=== PATIENT | female | born 1965 | race Caucasian/White ===

== ENCOUNTER → 2016-05-18 | Outpatient (CLI) | payer BC ==
--- NOTE | 2016-05-18 07:38 | US ---
EXAMINATION TYPE: US kidneys/renal and bladder DATE OF EXAM: 05/18/2016 7:10 AM COMPARISON: NONE CLINICAL HISTORY: 50-year-old female R80.9 Proteinuria. Hematuria TECHNIQUE: Multiple sonographic images of the kidneys were obtained. FINDINGS: Right Kidney: 11.7 x 3.9 x 4.7 cm without hydronephrosis. Left Kidney: 10.6 x 4.8 x 4.6 cm without hydronephrosis. There are a couple 5 mm echogenic foci one w ithin the mid pole and one within the lower pole suspicious for nonobstructive calculi. No gross abnormality of the partially urine distended bladder. Neither ureteral jet is seen during th e course of the exam. IMPRESSION: 1. No hydronephrosis. 2. Suspect a couple 5 mm nonobstructive calculi on the left.
== END | disposition home or self-care (01) ==
LOC: RADUSWWP 06:48
PROVIDERS: ATTEND Internal Medicine Rheumatology
DX: R80.9 Proteinuria, unspecified (principal)
CPT/HCPCS: 76770

== ENCOUNTER → 2020-11-15 | Outpatient (CLI) | payer OTHER ==
--- NOTE | 2020-11-18 09:28 | MM ---
Reason for exam: clinical finding. History: Patient is postmenopausal. Implants in both breasts, 1985. Physical Findings: Nurse did not find any significant physical abnormalities on exam. MG 3D Diag Mammo W/Cad EMA Bilateral CC and MLO view(s) were taken. LM, CC with magnification, and LM with magnification view(s) were taken of the right breast. The breast tissue is heterogeneously dense. This may lower the sensitivity of mammography. Scattered calcifications obscured by ruptured implants. 6 month follow up mammogram right breast. These results were verbally communicated with the patient and result sheet given to the patient on 11/15/20. ASSESSMENT: Incomplete: need additional imaging evaluation, BI-RAD 0 RECOMMENDATION: Ultrasound of the left breast. (at palpable sites)
--- NOTE | 2020-11-18 09:30 | USB ---
Reason for exam: additional evaluation requested from abnormal screening. History: Patient is postmenopausal. Implants in both breasts, 1985. US Breast Limited LT Left limited breast ultrasound including focal area of concern, retroareolar and axilla demonstrates no cystic or solid lesion seen. Left 9-3 o'clock scanned failed implant remnants noted throughout. These results were verbally communicated with the patient and result sheet given to the patient on 11/15/20. ASSESSMENT: Probably benign, BI-RAD 3 RECOMMENDATION: Follow-up diagnostic mammogram of the left breast in 6 months. (with magnification views) Manage patient on a clinical basis.
== END | disposition home or self-care (01) ==
LOC: RADMAMWWP 10:23
PROVIDERS: ATTEND Family Medicine
DX: R92.2 Inconclusive mammogram (principal); R92.1 Mammographic calcification found on diagnostic imaging of breast; Z78.0 Asymptomatic menopausal state
CPT/HCPCS: 77066; 76642; G0279; 77062

== ENCOUNTER → 2021-07-11 | Outpatient (CLI) | payer OTHER ==
[2021-07-11 22:23] LABS: Basophils # (A) 0.02 X 10*3/uL (0.00-0.10); Basophils % (A) 0.4 %; Eosinophils # (A) 0.09 X 10*3/uL (0.04-0.35); Eosinophils % (A) 1.9 %; HGB 12.2 g/dL (12.0-15.0); Immature Grans, Automated 0 %; Lymphocytes # (A) 1.66 X 10*3/uL (0.90-5.00); Lymphocytes % (A) 35.1 %; MCH 32.4 pg (27.0-32.0); MCHC 31.3 g/dL (32.0-37.0); MCV 103.7 fL (80.0-97.0); Mean Platelet Volume 10.3 fL (9.5-12.2); Monocytes # (A) 0.37 X 10*3/uL (0.20-1.00); Monocytes % (A) 7.8 %; NRBC Per 100 WBC 0 /100 WBCS (0.0-0.0); Neutrophils # (A) 2.59 X 10*3/uL (1.80-7.70); Neutrophils % (A) 54.8 %; Platelet Count 290 X 10*3/uL (140-440); RBC 3.76 X 10*6/uL (4.10-5.20); RDW 11.9 % (11.5-14.5); WBC 4.73 X 10*3/uL (4.50-10.00)
[2021-07-11 23:06] LABS: % Iron Saturation 16.25 (12.00-45.00); ALT 16 U/L (8-44); AST 18 U/L (13-35); African American GFR (CKD) 100.3 (60.0-200.0); Albumin 4.3 g/dL (3.8-4.9); Albumin/Globulin Ratio 3.06 (1.60-3.17); Alkaline Phosphatase 54 U/L (41-126); BUN/Creat Ratio 24.71 Ratio (12.00-20.00); Blood Urea Nitrogen 19.1 mg/dL (9.0-27.0); Calcium 8.7 mg/dL (8.7-10.3); Carbon Dioxide 21.2 mmol/L (20.0-27.5); Chloride 109 mmol/L (96-109); Globulin 1.4 g/dL (1.6-3.3); Glucose 89 mg/dL (70-110); Iron 54 ug/dL (50-170); Magnesium 2.1 mg/dL (1.5-2.4); Non-African American GFR(CKD) 86.5 (60.0-200.0); Sodium 141 mmol/L (135-145); Total Bilirubin <0.15 mg/dL (0.30-1.20); Total Iron Binding Capacity 330 ug/dL (228-460); Total Protein 5.7 g/dL (6.2-8.2)
== END | disposition home or self-care (01) ==
LOC: LABWHC1 16:05
PROVIDERS: ATTEND Nurse Practitioner Family
DX: R63.4 Abnormal weight loss (principal); R31.9 Hematuria, unspecified; R11.2 Nausea with vomiting, unspecified
CPT/HCPCS: 36415; 80053; 83036; 83516; 83540; 83550; 83735; 84439; 84443; 84481; 85025

== ENCOUNTER → 2021-07-14 | Outpatient (CLI) | payer OTHER ==
--- NOTE | 2021-07-14 15:50 | XR ---
EXAMINATION TYPE: XR femur LT DATE OF EXAM: 07/14/2021 COMPARISON: NONE HISTORY: 55-year-old female M79.609, unspecified limb pain TECHNIQUE: 2 views FINDINGS: No acute fracture. Hip and knee articulations appear grossly intact. No periostitis or osteolysis. No knee joint effusion. Possible subtle 1.1 cm wide broad-based osteochondroma from the lateral distal femoral metadiaphyseal cortex. IMPRESSION: Possible subtle 1.1 cm wide, broad-based tiny osteochondroma from the lateral distal femoral metadiap hysis. Correlate for any point tenderness here. No acute osseous abnormality otherwise seen.
== END | disposition home or self-care (01) ==
LOC: RADXRMAIN 11:15
PROVIDERS: ATTEND Nurse Practitioner Family
DX: M79.609 Pain in unspecified limb (principal)

== ENCOUNTER → 2021-07-31 | Outpatient (CLI) | payer OTHER ==
--- NOTE | 2021-07-31 18:04 | CT ---
EXAMINATION TYPE: CT abdomen pelvis w con CT DLP: 369.3 mGycm, Automated exposure control for dose reduction was used. DATE OF EXAM: 07/31/2021 4:59 PM COMPARISON: None. CLINICAL INDICATION:Female, 56 years old with history of R10.9 abdominal R63.4; Weight loss and abnor mal US. TECHNIQUE: Standard CT of the abdomen and pelvis following the administration of 100 cc of Isovue 3 00 IV contrast material and oral contrast. Coronal and sagittal reformats were performed. FINDINGS: LOWER CHEST: Unremarkable ABDOMEN LIVER: Left hepatic lobe probable renal cyst measuring 7 mm. GALLBLADDER AND BILE DUCTS: Common bile duct measures within normal limits measuring 7 mm. PANCREAS: The pancreatic duct measures at the upper limits of normal at 4 mm. SPLEEN: Unremarkable. ADRENAL GLANDS: Unremarkable. KIDNEYS AND URETERS: No evidence of hydronephrosis or renal calculus. The ureters are unremarkable. Left renal cyst measuring 13 mm. PELVIS BLADDER: Unremarkable REPRODUCTIVE: Unremarkable. ABDOMEN & PELVIS STOMACH AND BOWEL: Visualized liver stool throughout the colon. No evidence of bowel obstruction. PERITONEUM: No evidence of pneumoperitoneum or free fluid. VASCULATURE: No evidence of aortic aneurysm. MUSCULOSKELETAL: No acute osseous abnormalities. Grade 1 anterolisthesis of L3-4 without pars interar ticularis defects. LYMPH NODES: No gross evidence for lymphadenopathy. SOFT TISSUE/ABDOMINAL WALL: Unremarkable IMPRESSION: 1. No evidence of acute process or finding to correlate with patient's weight loss. Main pancreatic d uct and common bile duct are within normal limits. 2. Left renal cyst. 3. Left hepatic lobe too small to categorize probable renal cysts. 4. Large amount stool throughout the colon. Correlate for constipation. 5. No evidence of left lower pole renal calculus seen on prior ultrasound.
== END | disposition home or self-care (01) ==
LOC: RADCTMAIN 14:59
PROVIDERS: ATTEND Family Medicine
DX: N28.1 Cyst of kidney, acquired (principal); K63.89 Other specified diseases of intestine
CPT/HCPCS: 74177; Q9967

== ENCOUNTER → 2021-08-21 | Outpatient (CLI) | payer OTHER ==
[2021-08-21 16:22] VITALS: BP 104/70; PULSE 72; RESP 16; TEMP 98.6
--- NOTE | 2021-08-21 16:53 | P.GSHP ---
History of Present Illness H&P Date: 08/21/21 Chief Complaint: left breast lump Nela is a 56 year old white female seen in consultatin for Aline Golden regarding two lumps in her left breast. The patient felt these last summer. She had a bilateral mammogram on this was felt to be incomplete and an ultrasound of the left breast was recommended ultrasound of the left breast was performed on the same date and this was felt to be benign BIRADS 3 no cystic or solid lesions were identified. A follow-up mammogram of the left breast in 6 months was recommended. These were not repeated. She had bilateral breast implants in 1988. She states about one year ago the left implant started to decrease in size and so she had the right one aspirated by a plastic surgeon. She was told she would need them removed, this has not happened yet. Now she is having problems with them. The patient states that the implants are painful all the time. They are 10 out of 10. The worse if she is trying to sleep may cause severe discomfort for her additionally they cause her severe anxiety because she is on concern as to why they're so painful. She has also had extreme weight loss of approximately 40 pounds and they do not have an explanation as to the weight loss. Her breasts are asymmetric as the left one has leaked out in the right one was aspirated but they are still asymmetric making it difficult for her to find close to fit well. Caffiene: 1 cup/day nicotine: none chocolate: occasional BCP: none Family History: Paternal grandfather colon cancer uncertain of the type Father: Skin cancer maternal grandmother: uterine cancer Hormonal History: menarche: 13 M1, breast fed: no, age at first : 28 hysterectomy bilat oophrectomy at 48 for fibroids Surgical history: Total abdominal hysterectomy Appendectomy Lysis of adhesion Cervical spine surgery during an anterior approach Hemithyroidectomy Bilateral breast implants Medical history: hypothyroid pain medicine for cervical spine pain Social History: nicotine: none alcohol:none drugs: Marijuana daily - Constitutional Constitutional: Denies chills, Denies fever - EENT Eyes: denies blurred vision, denies pain Ears: bilateral: decreased hearing, tinnitus Ears, nose, mouth and throat: Denies headache, Denies sore throat - Breasts Breasts: bilateral: as per HPI - Cardiovascular Cardiovascular: Denies chest pain, Denies shortness of breath - Respiratory Respiratory: Denies cough, Denies 7 - Gastrointestinal Gastrointestinal: Denies abdominal pain, Denies diarrhea, Denies nausea, Denies vomiting - Genitourinary (Female) Genitourinary: Reports kidney stones, Denies dysuria, Denies hematuria - Menstruation Menstruation: Reports post hysterectomy - Musculoskeletal Musculoskeletal: Reports myalgias - Integumentary Integumentary: Denies pruritus, Denies rash - Neurological Neurological: Denies numbness, Denies weakness - Psychiatric Psychiatric: Denies anxiety, Denies depression - Endocrine Endocrine: Reports weight change, Denies fatigue - Hematologic/Lymphatic Comment: none - Allergic/Immunologic Allergic/Immunologic: Reports seasonal allergies Past Medical History History of Any Multi-Drug Resistant Organisms: None Reported Smoking Status: Former smoker Medications and Allergies Home Medications Medication Instructions Recorded Confirmed Type Cholecalciferol [Vitamin D3 (25 25 mcg PO DAILY 08/21/21 08/21/21 History Mcg = 1000 Iu)] FLUoxetine HCL [PROzac] 40 mg PO DAILY 08/21/21 08/21/21 History Levothyroxine Sodium [Synthroid] 88 mcg PO DAILY 08/21/21 08/21/21 History Topiramate [Topamax] 200 mg PO BID 08/21/21 08/21/21 History Valsartan/Hydrochlorothiazide 1 each PO DAILY 08/21/21 08/21/21 History [Valsartan-Hctz 160-12.5 mg Tab] Zinc 50 mg PO DAILY 08/21/21 08/21/21 History oxyCODONE-APAP 10-325MG [Percocet 1 tab PO Q8HR PRN 08/21/21 08/21/21 History 10-325 mg] Allergies Allergy/AdvReac Type Severity Reaction Status Date / Time lisinopril Allergy Rash/Hives Verified 08/21/21 16:22 Surgical - Exam Vital Signs Temp Pulse Resp BP Pulse Ox 98.6 F 72 16 104/70 98 08/21/21 16:19 08/21/21 16:19 08/21/21 16:19 08/21/21 16:19 08/21/21 16:19 BMI 17.9 - General well developed, well nourished, no distress - Eyes normal ocular movement - Neck trachea midline - Respiratory normal respiratory effort, clear to auscultation - Cardiovascular Rhythm: regular Heart Sounds: normal: S1, S2 - Abdomen Abdomen: soft, non tender, no guarding, no rigid, no rebound - Integumentary no rash, no abnormal pigmentation - Neurologic no disoriented, no combative - Musculoskeletal normal gait - Psychiatric oriented to time, oriented to person, oriented to place, speech is normal, memory intact Breast Exam: BRA: small sports bra inspection: The bilateral implants appeared to be deflated but the outline of the implants are still visible Palpation: Right breast: The implant is clearly palpable and tender to palpation negative very uncomfortable for the patient, no discrete masses noted within the parenchyma of the breast Right axilla: No adenopathy of concern Left breast: The left breast implant is deflated but the outline is visible and tender to palpation, no dominant masses or notches of concern Left axilla: No adenopathy of concern Results reviesed most recent mammogram Assessment and Plan Assessment: Impression: Bilateral deflated implants Asymmetry of the breast Bilateral breast check small discomfort 40 pound recent unintentional weight loss Chronic pain left breast/chest wall related to the implants Plan: Bilateral mammogram Removal of bilateral deflated implants CC: Aline Hardy, Dr. Hairston
== END ==
LOC: WWCWWP 15:48
PROVIDERS: ATTEND Surgery
DX: N64.4 Mastodynia (principal); T85.49XA Other mechanical complication of breast prosthesis and implant, initial encounter; N64.89 Other specified disorders of breast; G89.29 Other chronic pain; R63.4 Abnormal weight loss; E03.9 Hypothyroidism, unspecified; Z87.891 Personal history of nicotine dependence; Z88.8 Allergy status to other drugs, medicaments and biological substances

== ENCOUNTER → 2021-09-24 | Outpatient (CLI) | payer OTHER ==
--- NOTE | 2021-09-24 09:27 | NM ---
EXAMINATION TYPE: NM hepatobiliary w EF DATE OF EXAM: 09/24/2021 COMPARISON: NONE HISTORY: Chronic cholecystitis TECHNIQUE: After the intravenous administration of 5.04 mCi Tc 99m Mebrofenin hepatobiliary scintigra phy is performed. Immediate images post injection. FINDINGS: There is satisfactory initial accumulation of tracer by the liver. The gallbladder is visualized wit hin 16 minutes. The small bowel activity is noted within 14 minutes. At one hour 8 ounces of oral e nsure plus is given to mimic CCK and gallbladder ejection fraction is calculated at 86%. IMPRESSION: Consider hypercontractile gallbladder.
== END | disposition home or self-care (01) ==
LOC: RADNMMAIN 06:28
PROVIDERS: ATTEND Surgery Plastic and Reconstructive Surgery
DX: K82.4 Cholesterolosis of gallbladder (principal)
CPT/HCPCS: 78226; A9537

== ENCOUNTER 2021-10-09 06:47 | Day surgery (SDC) | payer OTHER ==
[2021-10-07 12:58] VITALS: BMI 17.9
[2021-10-09] MEDS ORDERED: LACTATED RINGERS 1,000 ML IV SCH (06:50)
[2021-10-09 07:05] VITALS: RESP 18; TEMP 97.3
[2021-10-09] MEDS ORDERED: LACTATED RINGERS 1,000 ML IV ONE (07:05)
[2021-10-09] MEDS ORDERED: fentaNYL (PF) 50 MCG/ML 2 ML AMP ONE (07:33)
[2021-10-09] MEDS ORDERED: PROPOFOL 10 MG/ML 20 ML VIAL IV ONE (07:33)
[2021-10-09] MEDS ORDERED: MIDAZOLAM 2 MG/2 ML VIAL ONE (07:33)
--- NOTE | 2021-10-09 07:37 | P.GSHP ---
History of Present Illness H&P Date: 10/09/21 CHIEF COMPLAINT: GERD and colon screen HISTORY OF PRESENT ILLNESS: The patient is a 56-year-old female who presents with gastroesophageal reflux disease and need for colon screen. Upper and lower endoscopy were offered for further evaluation and management. PAST MEDICAL HISTORY: Please see list. PAST SURGICAL HISTORY: Please see list. MEDICATIONS: Please see list. ALLERGIES: Please see list. SOCIAL HISTORY: No illicit drug use FAMILY HISTORY: No reports of Crohn disease or ulcerative colitis. REVIEW OF ORGAN SYSTEMS: CONSTITUTIONAL: No reports of fevers or chills. GI: Denies any blood in stools or constipation. PHYSICAL EXAM: VITAL SIGNS: Stable GENERAL: Well-developed pleasant in no acute distress. HEENT: No scleral icterus. Extraocular movements grossly intact. Moist buccal mucosa. NECK: Supple without lymphadenopathy. CHEST: Unlabored respirations. Equal bilateral excursions. CARDIOVASCULAR: Regular rate and rhythm. Distal 2+ pulses. ABDOMEN: Soft, nondistended. MUSCULOSKELETAL: No clubbing, cyanosis, or edema. ASSESSMENT: 1. Gastroesophageal reflux disease 2. Colon screen. PLAN: 1. Recommend proceeding with an upper and lower endoscopy Past Medical History Past Medical History: Thyroid Disorder Additional Past Medical History / Comment(s): MIGRAINES. LOST 40 LBS IN LAST 2 MONTHS FOR NO REASON. SPASTIC COLON. RUPTURED BREAST IMPLANTS-TO BE REMOVED AT LATER DATE History of Any Multi-Drug Resistant Organisms: None Reported Past Surgical History: Appendectomy, Bowel Resection, Hysterectomy, Tonsillectomy Additional Past Surgical History / Comment(s): BOWEL RESECTION-R/T-SPASTIC COLON. COLONOSCOPY. SBO RESECTION R/T SCAR TISSUE. BILAT BREAST IMPLANTS Past Anesthesia/Blood Transfusion Reactions: No Reported Reaction Smoking Status: Former smoker - Past Family History Father Family Medical History: Cancer Additional Family Medical History / Comment(s): SKIN Medications and Allergies Home Medications Medication Instructions Recorded Confirmed Type Cholecalciferol [Vitamin D3 (25 25 mcg PO DAILY 08/21/21 10/07/21 History Mcg = 1000 Iu)] FLUoxetine HCL [PROzac] 80 mg PO DAILY 08/21/21 10/07/21 History Levothyroxine Sodium [Synthroid] 88 mcg PO DAILY 08/21/21 10/07/21 History Topiramate [Topamax] 200 mg PO BID 08/21/21 10/07/21 History oxyCODONE-APAP 10-325MG [Percocet 1 tab PO Q8HR PRN 08/21/21 10/07/21 History 10-325 mg] Fluticasone Nasal [place] [Flonase 2 spray EA NOSTRIL DAILY 10/07/21 10/07/21 History Nasal [place]] Loratadine [Claritin] 10 mg PO DAILY 10/07/21 10/07/21 History Valsartan [Diovan] 160 mg PO DAILY 10/07/21 10/07/21 History Allergies Allergy/AdvReac Type Severity Reaction Status Date / Time lisinopril Allergy Rash/Hives Verified 10/07/21 12:45 Surgical - Exam Vital Signs Temp Pulse Resp BP Pulse Ox 97.3 F L 80 18 114/73 98 10/09/21 07:04 10/09/21 07:04 10/09/21 07:04 10/09/21 07:04 10/09/21 07:04
--- NOTE | 2021-10-09 07:48 | P.PCN ---
Date of Procedure: 10/09/21 Description of Procedure: PREOPERATIVE DIAGNOSIS: Gastroesophageal reflux disease. Unintentional weight loss Epigastric abdominal pain POSTOPERATIVE DIAGNOSIS: Gastroesophageal reflux disease. Unintentional weight loss Epigastric abdominal pain Gastritis OPERATION: Esophagogastroduodenoscopy with biopsies along antrum, duodenum, and esophagitis SURGEON: Myrna Forrester MD ANESTHESIA: MAC. INDICATIONS: The patient is a 56-year-old female who presents with reflux disease. Benefits and risks of the procedure were described. Informed consent was obtained. DESCRIPTION: The patient was brought into the endoscopy suite and laid in the left lateral decubitus position. An Olympus gastroscope was passed along the posterior oropharynx down to the distal esophagus where the squamocolumnar junction was encountered at 43 cm from the incisors. The stomach was entered and no bile reflux was found. Additional findings are listed below. Biopsies with cold forceps were obtained of the antrum. The first through third portion of the duodenum was examined. Retroflexion of the scope confirmed Hill grade 1 lower esophageal valve. The squamocolumnar junction demonstrated LA grade A erosive esophagitis. The stomach was desufflated. The patient tolerated the procedure well. FINDINGS: Squamocolumnar junction 43 cm from the incisors. Diaphragmatic hiatus at 43 cm. Hill grade 1 lower esophageal valve. LA grade A erosive esophagitis. Cold biopsies of the duodenum Chronic gastritis with cold biopsies Cold biopsies of the esophagus RECOMMENDATIONS: Upper endoscopy as needed.
--- NOTE | 2021-10-09 08:03 | P.PCN ---
Date of Procedure: 10/09/21 Description of Procedure: PREOPERATIVE DIAGNOSIS: Personal history colon polyps POSTOPERATIVE DIAGNOSIS: Poor prep with solid stool Constipation OPERATION: Colonoscopy to sigmoid colon, aborted due to poor prep SURGEON: Myrna Forrester MD. ANESTHESIA: MAC. INDICATIONS: The patient is a 56-year-old female who presents with history of colon polyps. Colonoscopy over 5 years ago. Benefits and risks were described and informed consent was obtained. DESCRIPTION OF PROCEDURE: The patient had undergone bowel prep. The patient had been brought into the endoscopy room and laid in the left lateral decubitus position. After adequate intravenous sedation, the rectum was examined with 2% lidocaine jelly. No external hemorrhoids were encountered. The rectal tone was within normal limits. No lesions were palpated in the rectal vault. An Olympus colonoscope was inserted and sigmoid colon were liquid stools were found. Solid stool was obstructing passage of the scope beyond the mid sigmoid colon. The procedure was aborted. No inflamed hemorrhoids were identified. The colonoscope was removed. Withdrawal time was over 6 minutes. FINDINGS: [place]ch[place] preparation quality scale 5 (1-5) No external prolapsed hemorrhoids. Scope advanced to the sigmoid colon. Poor prep with solid stool to mid sigmoid colon, nondiagnostic and aborted RECOMMENDATIONS: Recommend prolonged bowel prep 3-5 days. Repeat colonoscopy in 3 months, December 2021 Plan - Discharge Summary Discharge Rx Participant: No New Discharge Prescriptions: New polyethylene glycoL 3350 [Miralax] 17 gm PO DAILY #256 gm Continue Cholecalciferol [Vitamin D3 (25 Mcg = 1000 Iu)] 25 mcg PO DAILY Levothyroxine Sodium [Synthroid] 88 mcg PO DAILY FLUoxetine HCL [PROzac] 80 mg PO DAILY Fluticasone Nasal [place] [Flonase Nasal [place]] 2 spray EA NOSTRIL DAILY oxyCODONE-APAP 10-325MG [Percocet 10-325 mg] 1 tab PO Q8HR PRN PRN Reason: Pain Topiramate [Topamax] 200 mg PO BID Valsartan [Diovan] 160 mg PO DAILY Loratadine [Claritin] 10 mg PO DAILY Discharge Medication List Cholecalciferol [Vitamin D3 (25 Mcg = 1000 Iu)] 25 mcg PO DAILY 08/21/21 [History] FLUoxetine HCL [PROzac] 80 mg PO DAILY 08/21/21 [History] Levothyroxine Sodium [Synthroid] 88 mcg PO DAILY 08/21/21 [History] Topiramate [Topamax] 200 mg PO BID 08/21/21 [History] oxyCODONE-APAP 10-325MG [Percocet 10-325 mg] 1 tab PO Q8HR PRN 08/21/21 [History] Fluticasone Nasal [place] [Flonase Nasal [place]] 2 spray EA NOSTRIL DAILY 10/07/21 [History] Loratadine [Claritin] 10 mg PO DAILY 10/07/21 [History] Valsartan [Diovan] 160 mg PO DAILY 10/07/21 [History] polyethylene glycoL 3350 [Miralax] 17 gm PO DAILY #256 gm 10/09/21 [Rx] Follow up Appointment(s)/Referral(s): Myrna Forrester MD [STAFF PHYSICIAN] - 10/28/21 Patient Instructions/Handouts: *[facility] - (Anesthesia) Endoscopy Discharge Instructions, Upper Endoscopy (DC), Constipation (DC) Activity/Diet/Wound Care/Special Instructions: Repeat colonoscopy in 3 months, December 2021 Discharge Disposition: HOME SELF-CARE
[2021-10-09 08:21] VITALS: BP 135/76; PULSE 67
[2021-10-09] MEDS ORDERED: BUTALB/APAP/CAFF 50-325-40MG TAB PO STA (09:35)
[2021-10-09] MEDS ORDERED: SUMAtriptan succinate 6 MG/0.5 ML VIAL SQ STA (09:37)
== END 2021-10-09 09:40 | disposition home or self-care (01) ==
LOC: ORWHC2ENDO 06:47
PROVIDERS: ATTEND Surgery Plastic and Reconstructive Surgery
DX: Z12.11 Encounter for screening for malignant neoplasm of colon (principal); K59.00 Constipation, unspecified; Z86.010 Personal history of colon polyps; K21.00 Gastro-esophageal reflux disease with esophagitis, without bleeding; K29.50 Unspecified chronic gastritis without bleeding; K44.9 Diaphragmatic hernia without obstruction or gangrene; R63.4 Abnormal weight loss; Z68.1 Body mass index [BMI] 19.9 or less, adult; E07.9 Disorder of thyroid, unspecified; G43.909 Migraine, unspecified, not intractable, without status migrainosus; Z90.49 Acquired absence of other specified parts of digestive tract; Z87.891 Personal history of nicotine dependence; Z80.8 Family history of malignant neoplasm of other organs or systems; Z79.899 Other long term (current) drug therapy; Z79.890 Hormone replacement therapy; Z79.51 Long term (current) use of inhaled steroids; Z88.8 Allergy status to other drugs, medicaments and biological substances; F39 Unspecified mood [affective] disorder
CPT/HCPCS: 88305; 43239; 45330; J2250; J3010; J2704

== ENCOUNTER → 2021-10-17 | Outpatient (CLI) | payer OTHER ==
[2021-10-17 15:12] VITALS: BP 112/72; PULSE 81; RESP 16; TEMP 99.1
--- NOTE | 2021-10-17 15:42 | P.PN ---
Subjective Progress Note Date: 10/17/21 Principal diagnosis: bilateral deflated breast implants Nela is a 56 year old white female seen in consultation for Aline Golden regarding two lumps in her left breast. The patient felt these last summer. She had a bilateral mammogram on this was felt to be incomplete and an ultrasound of the left breast was recommended ultrasound of the left breast was performed on the same date and this was felt to be benign BIRADS 3 no cystic or solid lesions were identified. A follow-up mammogram of the left breast in 6 months was recommended. These were not repeated. She had bilateral breast implants in 1988. She states about one year ago the left implant started to decrease in size and so she had the right one aspirated by a plastic surgeon. She was told she would need them removed, this has not happened yet. Now she is having problems with them. The patient states that the implants are painful all the time. They are 10 out of 10. The worse if she is trying to sleep may cause severe discomfort for her additionally they cause her severe anxiety because she is on concern as to why they're so painful. She has also had extreme weight loss of approximately 40 pounds and they do not have an explanation as to the weight loss. Her breasts are asymmetric as the left one has leaked out in the right one was aspirated but they are still asymmetric making it difficult for her to find close to fit well. She had a bilateral mammogram done on 09-08-21 which was benign BIRAD 2. Caffiene: 1 cup/day nicotine: none chocolate: occasional BCP: none Family History: Paternal grandfather colon cancer uncertain of the type Father: Skin cancer maternal grandmother: uterine cancer Hormonal History: menarche: 13 M1, breast fed: no, age at first : 28 hysterectomy bilat oophrectomy at 48 for fibroids Surgical history: Total abdominal hysterectomy Appendectomy Lysis of adhesion Cervical spine surgery during an anterior approach Hemithyroidectomy Bilateral breast implants Medical history: hypothyroid pain medicine for cervical spine pain Social History: nicotine: none alcohol:none drugs: Marijuana daily - Constitutional Constitutional: Denies chills, Denies fever - EENT Eyes: denies blurred vision, denies pain Ears: bilateral: decreased hearing, tinnitus Ears, nose, mouth and throat: Denies headache, Denies sore throat - Breasts Breasts: bilateral: as per HPI - Cardiovascular Cardiovascular: Denies chest pain, Denies shortness of breath - Respiratory Respiratory: Denies cough - Gastrointestinal Gastrointestinal: Denies abdominal pain, Denies diarrhea, Denies nausea, Denies vomiting - Genitourinary (Female) Genitourinary: Reports kidney stones, Denies dysuria, Denies hematuria - Menstruation Menstruation: Reports post hysterectomy - Musculoskeletal Musculoskeletal: Reports myalgias - Integumentary Integumentary: Denies pruritus, Denies rash - Neurological Neurological: Denies numbness, Denies weakness - Psychiatric Psychiatric: Denies anxiety, Denies depression - Endocrine Endocrine: Reports weight change, Denies fatigue - Hematologic/Lymphatic Comment: none - Allergic/Immunologic Allergic/Immunologic: Reports seasonal allergies Past Medical History History of Any Multi-Drug Resistant Organisms: None Reported Smoking Status: Former smoker Medications and Allergies Home Medications Medication Instructions Recorded Confirmed Type Cholecalciferol [Vitamin D3 (25 25 mcg PO DAILY 08/21/21 08/21/21 History Mcg = 1000 Iu)] FLUoxetine HCL [PROzac] 40 mg PO DAILY 08/21/21 08/21/21 History Levothyroxine Sodium [Synthroid] 88 mcg PO DAILY 08/21/21 08/21/21 History Topiramate [Topamax] 200 mg PO BID 08/21/21 08/21/21 History Valsartan/Hydrochlorothiazide 1 each PO DAILY 08/21/21 08/21/21 History [Valsartan-Hctz 160-12.5 mg Tab] Zinc 50 mg PO DAILY 08/21/21 08/21/21 History oxyCODONE-APAP 10-325MG [Percocet 1 tab PO Q8HR PRN 08/21/21 08/21/21 History 10-325 mg] Allergies Allergy/AdvReac Type Severity Reaction Status Date / Time lisinopril Allergy Rash/Hives Verified 08/21/21 16:22 Objective - Vital Signs Vital signs: Vital Signs Temp 99.1 F 10/17/21 15:09 Pulse 81 10/17/21 15:09 Resp 16 10/17/21 15:09 BP 112/72 10/17/21 15:09 Pulse Ox 96 10/17/21 15:09 FiO2 Intake & Output 10/16/21 10/17/21 10/17/21 18:59 06:59 18:59 Weight 55.792 kg - Exam BMI: 17.6 - Constitutional General appearance: Present: cooperative - EENT Eyes: Present: EOMI ENT: Present: hearing grossly normal - Neck Neck: Present: normal ROM - Respiratory Respiratory: bilateral: CTA - Cardiovascular Heart sounds: normal: S1, S2 - Integumentary Integumentary: Present: normal turgor - Musculoskeletal Musculoskeletal: Present: gait normal - Psychiatric Psychiatric: Present: A&O x's 3, appropriate affect, intact judgment & insight - Additional findings Additional findings: Breast Exam: BRA: small sports bra/ 34A inspection:Bilateral deflated implants Asymmetry of the breast palpation: right breast: Multiple positional exam reveals the shell of the implant but no breast masses of concern Right axilla: No adenopathy of concern Left breast: Multiple positional exam reveals the shell of the implant no breast masses of concern Left axilla: No adenopathy of concern Assessment and Plan Assessment: Impression: Fibrocystic breast changes Bilateral deflated breast implants Asymmetry related to the breast implants bilatgeral mammogram on 09-08-21 BIRAD 2 Plan: Removal of breast implants Capsulectomy The patient is not going to have reconstruction Risks and benefits of the procedure discussed with the patient and her risks include but are not limited to bleeding, infection, reaction to the anesthetic. The understand and wish to proceed. This is scheduled for the near future. CC: Dr. Hairston
== END ==
LOC: WWCWWP 14:51
PROVIDERS: ATTEND Surgery
DX: N60.11 Diffuse cystic mastopathy of right breast (principal); N60.12 Diffuse cystic mastopathy of left breast; N64.89 Other specified disorders of breast; Z98.82 Breast implant status; Z88.6 Allergy status to analgesic agent; E03.9 Hypothyroidism, unspecified; F17.200 Nicotine dependence, unspecified, uncomplicated; Z79.890 Hormone replacement therapy

== ENCOUNTER 2021-11-04 07:09 | Day surgery (SDC) | payer OTHER ==
[2021-10-31 09:21] VITALS: BMI 17.2
[~2021-11-04 07:09] MED LIST: DEXAMETHASONE SOD PHOSPHATE 4 MG/ML 1 ML VIAL IV ONE; HEPARIN SODIUM,PORCINE/PF 5,000 UNIT/0.5 ML SYRINGE SQ PRN; LACTATED RINGERS 1,000 ML IV SCH; Pre Op ABX Message 1 EACH MISC MISCELLANE ONE
[2021-11-04] MEDS ORDERED: ONDANSETRON 4 MG/2 ML VIAL ONE (07:58)
[2021-11-04] MEDS ORDERED: ONDANSETRON 4 MG/2 ML VIAL IVP ONE (08:02)
[2021-11-04] MEDS ORDERED: LIDOCAINE 1% (10MG/ML) FOR IV START INTRADERMA ONE (08:02)
[2021-11-04] MEDS ORDERED: DEXAMETHASONE SOD PHOSPHATE 4 MG/ML 1 ML VIAL IV ONE (08:03)
[2021-11-04] MEDS ORDERED: MIDAZOLAM 2 MG/2 ML VIAL IV ONE (08:31)
[2021-11-04] MEDS ORDERED: SUCCINYLCHOLINE CHLORIDE 100 MG/5 ML SYR IV ONE (08:41)
[2021-11-04] MEDS ORDERED: HYDROCORTISONE SUCCINATE 100 MG/2 ML VIAL ONE (08:41)
[2021-11-04] MEDS ORDERED: HYDROmorphone (PF) 1 MG/ML ONE (08:41)
[2021-11-04] MEDS ORDERED: PROPOFOL 10 MG/ML 20 ML VIAL IV ONE (08:41)
[2021-11-04] MEDS ORDERED: fentaNYL (PF) 50 MCG/ML 2 ML AMP ONE (08:41)
[2021-11-04] MEDS ORDERED: ePHEDrine 50 MG/ML 1 ML VIAL ONE (08:41)
[2021-11-04] MEDS ORDERED: MIDAZOLAM 2 MG/2 ML VIAL ONE (08:41)
[2021-11-04] MEDS ORDERED: LIDOCAINE 2% INJ 20 MG/ML (2 ML VIAL) ONE (08:41)
[2021-11-04] MEDS ORDERED: SODIUM CHLORIDE 0.9% 50 ML with ceFAZolin 2,000 MG IV ONE ×2 (08:57)
[2021-11-04] MEDS ORDERED: LACTATED RINGERS 1,000 ML IV ONE (09:36)
[2021-11-04] MEDS ORDERED: LIDOCAINE (PF) 10 MG/ML 2 ML VIAL SQ ONE ×2 (10:04)
--- NOTE | 2021-11-04 10:35 | P.OP ---
Date of Procedure: 11/04/21 Preoperative Diagnosis: Bilateral ruptured breast implants Postoperative Diagnosis: Same Procedure(s) Performed: Removal of bilateral ruptured implants, bilateral capsulectomies Anesthesia: JAYJAYA Surgeon: Nori Martinez Estimated Blood Loss (ml): 10 IV fluids (ml): 1,200 Pathology: other (Bilateral ruptured implants, bilateral capsules) Condition: stable Disposition: same day Indications for Procedure: Bilateral symptomatic ruptured breast implants Operative Findings: Bilateral ruptured breast implants/subpectoral Description of Procedure: The patient was brought to the operating room and following induction of anesthesia bilateral breasts/chest wall were prepped and draped in a sterile fashion. The left side was approached initially. An incision was made and carried down to the area of the breast implant. This was extruded. This was noted to be ruptured and folded on itself. The capsule was then grasped using an Allis clamp. Careful dissection blunt and sharp was performed to remove the capsule. The capsule was completely removed. The cavity was well irrigated. It was evaluated for hemostasis. Hemostasis was attained using the electrocautery device. Following this Surgicel in powder form was placed. A #10 OLGA drain was placed. The tissues were closed in layers using 3-0 Vicryl suture. This was followed by closure of the skin using 3-0 Vicryl suture followed by a 4-0 Monocryl. The right side was approached. An right breast incision was made and carried down to the ruptured implant. The implant was extruded. The capsule was grasped using an Allis clamps and was removed using sharp and blunt dissection. After we were assured that hemostasis was attained the cavity was well irrigated. Hemostasis was attained using the electrocautery device. Surgicel in powder form was placed. A #10 OLGA drain was placed. Deep tissues were closed using 3-0 Vicryl suture followed by closure of the skin with 3-0 Vicryl subcutaneous suture and a 4-0 Monocryl. Steri-Strips were applied. Prior to application of Steri-Strips approximately 10 mL of 1% lidocaine was injected between both sides. The patient tolerated the procedure in stable condition. All instrument and sponge counts were correct at the end of the case.
--- NOTE | 2021-11-04 10:37 | P.DS ---
Providers Attending physician: Nori Martinez Primary care physician: Hugo Hairston Plan - Discharge Summary Discharge Rx Participant: Yes New Discharge Prescriptions: No Action Cholecalciferol [Vitamin D3 (25 Mcg = 1000 Iu)] 25 mcg PO DAILY Levothyroxine Sodium [Synthroid] 88 mcg PO DAILY FLUoxetine HCL [PROzac] 80 mg PO DAILY Fluticasone Nasal [place] [Flonase Nasal [place]] 2 spray EA NOSTRIL DAILY oxyCODONE-APAP 10-325MG [Percocet 10-325 mg] 1 tab PO Q8HR PRN PRN Reason: Pain Topiramate [Topamax] 200 mg PO BID Loratadine [Claritin] 10 mg PO DAILY Verapamil HCl [Verapamil ER] 180 mg PO DAILY Discharge Medication List Cholecalciferol [Vitamin D3 (25 Mcg = 1000 Iu)] 25 mcg PO DAILY 08/21/21 [History] FLUoxetine HCL [PROzac] 80 mg PO DAILY 08/21/21 [History] Levothyroxine Sodium [Synthroid] 88 mcg PO DAILY 08/21/21 [History] Topiramate [Topamax] 200 mg PO BID 08/21/21 [History] oxyCODONE-APAP 10-325MG [Percocet 10-325 mg] 1 tab PO Q8HR PRN 08/21/21 [History] Fluticasone Nasal [place] [Flonase Nasal [place]] 2 spray EA NOSTRIL DAILY 10/07/21 [History] Loratadine [Claritin] 10 mg PO DAILY 10/07/21 [History] Verapamil HCl [Verapamil ER] 180 mg PO DAILY 10/31/21 [History] Follow up Appointment(s)/Referral(s): Nori Martinez MD [STAFF PHYSICIAN] - 11/13/21 4:20 pm Activity/Diet/Wound Care/Special Instructions: Teach patient drain care, drain and record output twice a day and as needed keep drains listed separately Patient may shower after 48 hours Were Bakari wrap at all times Do not drive until seen by Dr. Barker if taking narcotic pain medication Instead of Percocet the patient will use [place] for the next several days because we do not want to inhibit platelets Discharge Disposition: HOME SELF-CARE
[2021-11-04 11:00] VITALS: TEMP 97.2
[2021-11-04] MEDS ORDERED: HYDROmorphone 0.5 MG/0.5 ML SYRINGE IVP ONE (11:07)
[2021-11-04 11:44] VITALS: RESP 18
[2021-11-04] MEDS ORDERED: HYDROcodone/APAP 5-325MG 1 EACH TAB ONE (11:48)
[2021-11-04] MEDS ORDERED: HYDROcodone/APAP 5-325MG 1 EACH TAB PO ONE (11:50)
[2021-11-04 12:11] VITALS: BP 114/60; PULSE 71
== END 2021-11-04 12:35 | disposition home or self-care (01) ==
LOC: OR 07:09
PROVIDERS: ATTEND Surgery
DX: T85.41XA Breakdown (mechanical) of breast prosthesis and implant, initial encounter (principal); T85.848A Pain due to other internal prosthetic devices, implants and grafts, initial encounter; N64.89 Other specified disorders of breast; R63.4 Abnormal weight loss; E89.0 Postprocedural hypothyroidism; I10 Essential (primary) hypertension; Z86.73 Personal history of transient ischemic attack (TIA), and cerebral infarction without residual deficits; Z68.1 Body mass index [BMI] 19.9 or less, adult; Z90.710 Acquired absence of both cervix and uterus; Z90.722 Acquired absence of ovaries, bilateral; Z90.49 Acquired absence of other specified parts of digestive tract; Z98.890 Other specified postprocedural states; Z87.442 Personal history of urinary calculi; Z87.891 Personal history of nicotine dependence; Z79.899 Other long term (current) drug therapy; Z79.890 Hormone replacement therapy; Z88.8 Allergy status to other drugs, medicaments and biological substances; Z90.89 Acquired absence of other organs; Z80.0 Family history of malignant neoplasm of digestive organs; Z80.8 Family history of malignant neoplasm of other organs or systems
CPT/HCPCS: 88305; 88300; 19371; J2250; J2001 ×2; J1100; J1720; J2405; J0690; J3010; J1170 ×2; J0330; J2704; J1644

== ENCOUNTER 2021-11-05 10:38 | Emergency (ER) | payer OTHER ==
[2021-11-05 10:43] VITALS: BP 127/78; PULSE 76; RESP 20; TEMP 98.2
[2021-11-05] MEDS ORDERED: BACITRACIN OINT 1 EACH PACKET TOPICAL ONE (11:15)
[2021-11-05] MEDS ORDERED: MORPHINE SULFATE 2 MG/ML SYRINGE IM STA (11:31)
--- NOTE | 2021-11-05 11:31 | ED ---
Recheck HPI - General Chief Complaint: Recheck/Abnormal Lab/Rx Stated Complaint: post surgery issues Time Seen by Provider: 11/05/21 10:51 Source: patient Mode of arrival: ambulatory Limitations: no limitations - History of Present Illness Initial Comments: Patient is a 56-year-old female presents to the emergency room with complaints of lack of drainage out of her left OLGA drain and copious amounts of drainage from her OLGA insertion site after a bilateral breast implant removal yesterday. She reports that her left breast did rupture prior to her breast implant removal. She denies any foul odor or purulent drainage increase in pain or redness to her surgical site or around the OLGA insertion site. She denies any fevers or chills. She has a follow-up routine scheduled appointment with Dr. Mj Jaimes on November 11 which is 1 week postop. In addition to her elective breast implants and left breast implant rupture with recent removal she has a past medical history significant for recent weight loss which is being investigated by her primary care provider and migraines. She denies any other complaints or concerns at this time. - Related Data Home Medications Medication Instructions Recorded Confirmed Cholecalciferol [Vitamin D3 (25 25 mcg PO DAILY 08/21/21 11/04/21 Mcg = 1000 Iu)] FLUoxetine HCL [PROzac] 80 mg PO DAILY 08/21/21 11/04/21 Levothyroxine Sodium [Synthroid] 88 mcg PO DAILY 08/21/21 11/04/21 Topiramate [Topamax] 200 mg PO BID 08/21/21 11/04/21 oxyCODONE-APAP 10-325MG [Percocet 1 tab PO Q8HR PRN 08/21/21 11/04/21 10-325 mg] Fluticasone Nasal [place] [Flonase 2 spray EA NOSTRIL DAILY 10/07/21 11/04/21 Nasal [place]] Loratadine [Claritin] 10 mg PO DAILY 10/07/21 11/04/21 Verapamil HCl [Verapamil ER] 180 mg PO DAILY 10/31/21 11/04/21 Allergies Allergy/AdvReac Type Severity Reaction Status Date / Time lisinopril Allergy Rash/Hives Verified 11/05/21 10:43 Review of Systems ROS Statement: Those systems with pertinent positive or pertinent negative responses have been documented in the HPI. ROS Other: All systems not noted in ROS Statement are negative. Past Medical History Past Medical History: Thyroid Disorder Additional Past Medical History / Comment(s): MIGRAINES. LOST 40 LBS IN LAST 2 MONTHS FOR NO REASON. SPASTIC COLON. RUPTURED BREAST IMPLANTS-TO BE REMOVED AT LATER DATE History of Any Multi-Drug Resistant Organisms: None Reported Past Surgical History: Appendectomy, Bowel Resection, Hysterectomy, Tonsillectomy Additional Past Surgical History / Comment(s): BOWEL RESECTION-R/T-SPASTIC COLON. COLONOSCOPY. SBO RESECTION R/T SCAR TISSUE. BILAT BREAST IMPLANTS Past Anesthesia/Blood Transfusion Reactions: No Reported Reaction Past Psychological History: Anxiety, Depression Smoking Status: Former smoker Past Alcohol Use History: None Reported Past Drug Use History: None Reported - Past Family History Father Family Medical History: Cancer Additional Family Medical History / Comment(s): SKIN General Exam Limitations: no limitations General appearance: alert, in no apparent distress Head exam: Present: atraumatic, normocephalic, normal inspection Eye exam: Present: normal appearance, PERRL, EOMI. Absent: scleral icterus, conjunctival injection, periorbital swelling ENT exam: Present: normal exam, mucous membranes moist Neck exam: Present: normal inspection. Absent: tenderness, meningismus, lymphadenopathy Respiratory exam: Absent: respiratory distress, accessory muscle use GI/Abdominal exam: Present: soft. Absent: distended, tenderness, guarding, rebound, rigid Back exam: Present: normal inspection Neurological exam: Present: alert, oriented X3, CN II-XII intact Psychiatric exam: Present: normal affect, normal mood Skin exam: Present: other (Surgical site to anterior breasts not evaluated dressing intact. Left OLGA insertion site without erythema and induration or breast tissue edema. OLGA tube in place with suture intact now drainings serosanguineous blood-tinged fluid.) Course Vital Signs 11/05/21 10:39 Temperature 98.2 F Pulse Rate 76 Respiratory 20 Rate Blood Pressure 127/78 O2 Sat by Pulse 98 Oximetry Medical Decision Making - Medical Decision Making Breast tissue without any significant erythema or edema. serosanguineous drainage noted around OLGA insertion site with dark bloody drainage scant amount noted in OLGA. No need for diagnostic imaging at this time or laboratory studies will strip OLGA tubing for improved output to OLGA drain and rotate tubing to improve drainage along with serial OLGA site with Bacitracin. Patient tolerated stripping well with viral amount of serosanguineous output now coming out the OLGA tubing and minimal amount of drainage from incision site. 2 mg of IM morphine given to help with pain with good response without side effects. Dressing reapplied. Discussed signs and symptoms of infection along with care of OLGA drain. Advised to follow-up with Dr. Mj Jaimes and her primary care provider as already scheduled. Will discharge home. Case discussed with Dr. Gonzalez. Disposition Clinical Impression: Encounter for wound re-check Disposition: HOME SELF-CARE Condition: Stable Instructions (If sedation given, give patient instructions): [facility] Drain Care (ED) Additional Instructions: Continue to drain OLGA bulbs regularly and monitor output with recordings. Monitor for any increased inflammation, swelling, purulent, or odor coming from drainage along with fevers, chills, nausea, or vomiting. Please seek immediate medical attention as appropriate if the symptoms occur. Please keep upcoming appointment with Dr. Mj Jaimes as scheduled. Keep incisions and OLGA insertion sites clean and dry. Please return to the Emergency Department if symptoms worsen or any other concerns. Is patient prescribed a controlled substance at d/c from ED?: No Referrals: Hugo Hairston DO [Primary Care Provider] - 1-2 days Nori Martinez MD [STAFF PHYSICIAN] - 11/11/21 Time of Disposition: 12:37
== END 2021-11-05 13:03 | disposition home or self-care (01) ==
LOC: EC 10:38
DX: T81.89XA Other complications of procedures, not elsewhere classified, initial encounter (principal); Z87.891 Personal history of nicotine dependence; Z88.8 Allergy status to other drugs, medicaments and biological substances
CPT/HCPCS: 99283; 96372; J2270

== ENCOUNTER → 2021-11-13 | Outpatient (CLI) | payer OTHER ==
[2021-11-13 16:24] VITALS: BP 101/62; PULSE 73; RESP 18; TEMP 98.9
--- NOTE | 2021-11-13 16:31 | P.PN ---
Progress Note - Text Progress Note Date: 11/13/21 Nela 56-year-old white female status post bilateral removal of ruptured implants and bilateral capsulectomies on . She is doing well postoperatively. She has minimal output from her OLGA drains. She has not had any fever or chills. Pathology revealed implants as well as capsules. Exam: Lungs: Clear Heart: Regular rate and rhythm Incisions clean and dry bilateral OLGA drains minimal bilateral Plan: DC OLGA drains Bilateral mammogram in 6 months with physician exam at that time CC: Dr. Hairston
== END | disposition home or self-care (01) ==
LOC: WWCWWP 16:11
PROVIDERS: ATTEND Surgery
DX: Z53.9 Procedure and treatment not carried out, unspecified reason (principal)